=== PATIENT | male | born 1985 | race African-American/Black ===

== ENCOUNTER 2017-02-09 19:00 | Emergency (ER) | payer OTHER ==
[~2017-02-09] VITALS: Ht 170.2 cm; Wt 63.5 kg
[~2017-02-09 19:00] MED LIST: CUPRIMINE PO; FOLIC ACID1 MG PO; GLUCOPHAGE1000 MG PO; HYDREA PO; KEPPRA250 MG PO; LISINOPRIL10 MG PO; OXCARBAZEPINE300 MG PO; PENICILLIN VK250 MG PO; PERCOCET 5-3251 EACH PO; SENOKOT-S1 TA1 PO; TRILEPTAL; TRILEPTAL 300300 MG
[2017-02-09] MEDS ORDERED: CYCLOBENZAPRINE5 MG PO (20:04)
[2017-02-09 20:20] VITALS: BP 131/74
== END 2017-02-09 20:20 | disposition home or self-care (01) ==
LOC: ER 19:00
DX: M62.830 Muscle spasm of back (principal); M25.562 Pain in left knee; D57.80 Other sickle-cell disorders without crisis; F17.210 Nicotine dependence, cigarettes, uncomplicated; F10.99 Alcohol use, unspecified with unspecified alcohol-induced disorder; Z91.041 Radiographic dye allergy status; Z88.8 Allergy status to other drugs, medicaments and biological substances; V43.52XA Car driver injured in collision with other type car in traffic accident, initial encounter; Y93.I9 Activity, other involving external motion; Y92.89 Other specified places as the place of occurrence of the external cause; Y99.8 Other external cause status